=== PATIENT | male | born 1960 | race Caucasian/White ===

== ENCOUNTER 2023-12-05 21:35 | Emergency (ER) | payer OTHER, SELFPAY ==
[2023-12-05] MEDS ORDERED: NA CHLORIDE 0.9% 2,000 ML ONE (23:41)
[2023-12-06 00:04] LABS: Absolute Basophils 0.1 K/uL (0-0.5); Absolute Eosinophils 0.1 K/uL (0-0.5); Absolute Lymphocytes (CBC) 1.7 K/uL (0.7-4.9); Absolute Monocytes 0.7 K/uL (0.1-1.3); Absolute Neutrophil 8.1 K/uL (1.8-8.0); Basophils % 0.6 % (0-1.3); Eosinophils % 0.6 % (0-4.4); Hematocrit 40.1 % (39.6-49.0); Hemoglobin 13.5 g/dL (13.6-17.9); Lymphocytes % 16.1 % (15.3-44.8); MCH 32.3 pg (27.0-35.0); MCHC 33.7 g/dL (32.0-36.0); MPV 7.2 fL (7.6-11.3); Monocytes % 6.2 % (3.3-12.3); Neutrophils % 76.5 % (41.7-73.7); Platelets 237 thou/uL (152-406); RBC Red Blood Cell Count 4.18 M/uL (4.33-5.43); Red Cell Distribution Width 13.4 % (12.1-15.2)
[2023-12-06 00:16] LABS: Albumin 3.8 g/dL (3.4-5.0); Albumin/Globulin Ratio 1.2 (1.1-1.8); Bilirubin Direct 0.2 mg/dL (0-0.2); Bilirubin Indirect, Calculated 0.5 mg/dL (0.2-0.8); Bilirubin Total 0.7 mg/dL (0.2-1.0); Globulin 3.3 g/dL (2.3-3.5); Magnesium 2.4 mg/dL (1.6-2.4); Protein, Total 7.1 g/dL (6.4-8.2); Troponin High Sensitivity 5.6 pg/mL (<58.9)
[2023-12-06] MEDS ORDERED: TDAP (DIPHTH,PERTUSS(ACELL),TET VAC) 0.5 ML VIAL IMVAC ONE (01:19)
[2023-12-06] MEDS ORDERED: LIDOCAINE 1% 20 ML MDV ONE (01:19)
--- NOTE | 2023-12-06 01:49 | ER ---
Nurse's Notes [facility] Name: Javi Mcnulty Age: 63 yrs Sex: Male : 1960 Arrival Date: 12/05/2023 Time: 21:35 Bed 4 Private MD: Diagnosis: Heat syncope;Acute syncopal episode, moderate dehydration, right wrist laceration, Fall at home Presentation: 12/04 22:19 Chief complaint: Patient states: Pt was working outside all day and was not drinking jb4 water. Took his b/p meds and passed out. Initial b/p was 71/45. Pt was given a 400ml bolus and placed in Trendelenburg. Coronavirus screen: At this time, the client does not indicate any symptoms associated with coronavirus-19. Ebola Screen: No symptoms or risks identified at this time. Initial Sepsis Screen: Does the patient meet any 2 criteria? No. Patient's initial sepsis screen is negative. Does the patient have a suspected source of infection? No. Patient's initial sepsis screen is negative. Risk Assessment: Do you want to hurt yourself or someone else? Patient reports no desire to harm self or others. Onset of symptoms was December 05, 2023. Transition of care: patient was not received from another setting of care. 22:19 Method Of Arrival: EMS: [facility] jb4 22:19 Acuity: MAKEDA 3 jb4 Historical: - Allergies: 22:25 Vancomycin; jb4 - Home Meds: 22:25 Aspirin Oral [Active]; carvedilol oral [Active]; gabapentin oral [Active]; Lisinopril jb4 Oral [Active]; - PMHx: 22:25 HTN; Enlarged prostate; Neuropathy; jb4 - Immunization history:: Adult Immunizations up to date. - Infectious Disease History:: Denies. - Social history:: Smoking status: Patient denies any tobacco usage or history of. - Family history:: not pertinent. Screenin/15 01:58 [facility] ED Fall Risk Assessment (Adult) History of falling in the last 3 months, jb4 including since admission No falls in past 3 months (0 pts) Confusion or Disorientation No (0 pts) Intoxicated or Sedated No (0 pts) Impaired Gait No (0 pts) Mobility Assist Device Used No (0 pt) Altered Elimination No (0 pt) Score/Fall Risk Level 0 - 2 = Low Risk Oriented to surroundings, Maintained a safe environment. Abuse screen: Denies threats or abuse. Nutritional screening: No deficits noted. Tuberculosis screening: No symptoms or risk factors identified. Assessment: 12/04 22:30 General: Appears in no apparent distress. comfortable, Behavior is calm, cooperative, jb4 appropriate for age. Pain: Complains of pain in right wrist Pain does not radiate. Pain currently is 4 out of 10 on a pain scale. Neuro: Level of Consciousness is awake, alert, obeys commands, Oriented to person, place, time, situation. Cardiovascular: Patient's skin is warm and dry. Respiratory: Airway is patent Respiratory effort is even, unlabored, Respiratory pattern is regular, symmetrical. GI: No signs and/or symptoms were reported involving the gastrointestinal system. : No signs and/or symptoms were reported regarding the genitourinary system. EENT: No signs and/or symptoms were reported regarding the EENT system. Derm: Skin is pink, warm \T\ dry. Musculoskeletal: Circulation, motion, and sensation intact. Injury Description: Laceration sustained to right wrist. 12/05 00:00 Reassessment: Patient appears in no apparent distress at this time. Patient and/or jb4 family updated on plan of care and expected duration. Pain level reassessed. Patient is alert, oriented x 3, equal unlabored respirations, skin warm/dry/pink. 01:58 Reassessment: Patient appears in no apparent distress at this time. Patient and/or jb4 family updated on plan of care and expected duration. Pain level reassessed. Patient is alert, oriented x 3, equal unlabored respirations, skin warm/dry/pink. Vital Signs: 12/04 22:19 BP 144 / 86; Pulse 63; Resp 16; Temp 98(O); Pulse Ox 100% ; Weight 92.99 kg (R); Height jb4 5 ft. 9 in. (R); Pain 0/10; 12/05 01:42 BP 172 / 84 RA Supine; Pulse 69; Pulse Ox 100% on R/A; oe 01:44 BP 185 / 97 RA Sitting; Pulse 74; Pulse Ox 100% on R/A; oe 01:46 BP 176 / 90 RA Standing; Pulse 73; Pulse Ox 100% on R/A; oe 12/04 22:19 Body Mass Index 30.27 (92.99 kg, 175.26 cm) jb4 12/04 22:19 Pain Scale: Adult jb4 Mariely Coma Score: 01:49 Eye Response: spontaneous(4). Motor Response: obeys commands(6). Verbal Response: sp4 oriented(5). Total: 15. NIH Stroke Scale Scores: 01:49 NIHSS Score: 0 sp4 ED Course: 12/04 21:35 Patient arrived in ED. jj6 21:39 Santy Montesinos MD is Attending Physician. sp4 22:25 Triage completed. jb4 22:25 Arm band placed on right wrist. jb4 23:47 Troponin HS Sent. jb4 23:47 NT PRO-BNP Sent. jb4 23:47 Magnesium Sent. jb4 23:47 LFT's Sent. jb4 23:47 Basic Metabolic Panel Sent. jb4 23:47 CBC with Diff Sent. jb4 23:47 CK Sent. jb4 12/05 01:47 Monster Lizama MD is Referral Physician. sp4 01:58 Patient has correct armband on for positive identification. Bed in low position. Call jb4 light in reach. Side rails up X 1. Provided Education on: discharge instructions.. 01:58 No provider procedures requiring assistance completed. IV discontinued, intact, jb4 bleeding controlled, No redness/swelling at site. Pressure dressing applied. Administered Medications: 12/04 23:47 Drug: NS 0.9% IV 1000 ml IV at 1 bolus Per protocol; 1000 mL bolus Route: IV; Rate: 1 jb4 bolus; Site: left antecubital; 12/05 02:00 Follow up: Response: No adverse reaction; IV Status: Completed infusion; IV Intake: jb4 1000ml 01:51 Not Given (Physician Discretion): ns 0.9% 1000 ml IV at 250 ml/hr continuous jb4 01:55 Drug: Trimethoprim-Sulfamethoxazole PO (160 mg-800 mg (DS) 1 tablet PO once Route: PO; jb4 02:00 Follow up: Response: Medication Administered at Departure jb4 01:56 Drug: Lidocaine Infiltration (1 %) 20 ml 20 ml Infiltration once; to bedside {Note: al5 given by .} Volume: 20 ml; Route: Infiltration; 01:57 Follow up: Response: No adverse reaction al5 01:56 Drug: Boostrix Tdap IM 0.5 ml IM once; as a single dose Route: IM; Site: left deltoid; al5 01:56 Follow up: Response: (VIS) Vaccine information sheet provided today. Questions and/or al5 concerns addressed. VIS edition date: Nov 26, 2020.; No adverse reaction Intake: 02:00 IV: 1000ml; Total: 1000ml. jb4 Outcome: 01:48 Discharge ordered by MD. sp4 01:58 Discharged to home ambulatory, jb4 01:58 Condition: stable 01:58 Discharge instructions given to patient, Instructed on discharge instructions, follow up and referral plans. medication usage, Demonstrated understanding of instructions, follow-up care, medications, Prescriptions given X 1, 02:00 Patient left the ED. jb4 NIH Stroke Scale - NIH Stroke Score Date: 12/06/2023 Time: 01:49 Total Score = 0 10. Dysarthria (speech clarity - read or repeat words) - 0(Normal) 11. Extinction and Inattention (visual/tactile/auditory/spatial/personal) - 0(No abnormality) 1a. Level of Consciousness (LOC) - 0(Alert) 1b. Level of Consciousness (LOC) (Month \T\ Age) - 0(Both) 1c. LOC Commands (Open \T\ Closes Eyes/Woods Rider) - 0(Both) 2. Best Gaze (Lateral Gaze Paresis) - 0(Normal) 3. Visual Field Loss - 0(No visual loss) 4. Facial Palsy - 0(Normal) 5a. Left Arm: Motor (10-second hold) - 0(No drift) 5b. Right Arm: Motor (10-second hold) - 0(No drift) 6a. Left Leg: Motor (5-second hold - always test supine) - 0(No drift) 6b. Right Leg: Motor (5-second hold - always test supine) - 0(No drift) 7. Limb Ataxia (finger/nose \T\ heel/winters - test with eyes open) - 0(Absent) 8. Sensory Loss (pinprick arms/legs/face) - 0(Normal) 9. Best Language: Aphasia (description/naming/reading) - 0(No aphasia) Initials: sp4 Signatures: Shane Patel, RN RN jb4 Ankit Rene Jennifer jj6 Santy Montesinos MD MD sp4 Celestina Bowman RN RN al5 Corrections: (The following items were deleted from the chart) 02:00 01:58 Discharge instructions given to patient, Instructed on discharge jb4 instructions, follow up and referral plans. Demonstrated understanding of instructions, follow-up care, jb4
--- NOTE | 2023-12-06 01:49 | EDPHYS ---
Physician Documentation [facility] Name: Javi Mcnulty Age: 63 yrs Sex: Male : 1960 Arrival Date: 12/05/2023 Time: 21:35 Bed 4 Private MD: ED Physician Santy Montesinos HPI: 12/04 21:39 This 63 yrs old Male presents to ER via Unassigned with complaints of Syncope.sp4 12/05 22:10 Patient presents with acute onset of syncopal episode. After he has spent some time sp4 inside the [employer] horse shed and a barn. Patient passed out fell and lacerated his right wrist.. Historical: - Allergies: 12/04 22:25 Vancomycin; jb4 - Home Meds: 22:25 Aspirin Oral [Active]; carvedilol oral [Active]; gabapentin oral [Active]; Lisinopril jb4 Oral [Active]; - PMHx: 22:25 HTN; Enlarged prostate; Neuropathy; jb4 - Immunization history:: Adult Immunizations up to date. - Infectious Disease History:: Denies. - Social history:: Smoking status: Patient denies any tobacco usage or history of. - Family history:: not pertinent. ROS: 12/05 22:10 Constitutional: Negative for fever, chills, and weight loss, positive syncopal episode, sp4 positive for heat exhaustion, positive for right wrist laceration. All other systems are negative, Exam: 01:49 Constitutional: This is a well developed, well nourished patient who is awake, alert, sp4 and in no acute distress. Head/Face: Normocephalic, atraumatic. Eyes: Pupils equal round and reactive to light, extra-ocular motions intact. Lids and lashes normal. Conjunctiva and sclera are not injected. Cornea within normal limits. Periorbital areas with no swelling, redness, or edema. ENT: Nares patent. No nasal discharge, no septal abnormalities noted. Tympanic membranes are normal and external auditory canals are clear. Oropharynx with no redness, swelling, or masses, exudates, or evidence of obstruction, uvula midline. Mucous membranes moist. Neck: Trachea midline, no thyromegaly or masses palpated, and no cervical lymphadenopathy. Supple, full range of motion without nuchal rigidity, or vertebral point tenderness. Chest/axilla: Normal chest wall appearance and motion. Nontender with no deformity. No lesions are appreciated. Cardiovascular: Regular rate and rhythm with a normal S1 and S2. No gallops, murmurs, or rubs. Normal PMI, no JVD. No pulse deficits. Respiratory: Lungs have equal breath sounds bilaterally, clear to auscultation and percussion. No rales, rhonchi or wheezes noted. No increased work of breathing, no retractions or nasal flaring. Abdomen/GI: Soft, with normal bowel sounds. No distension or tympany. No guarding or rebound. No evidence of tenderness throughout. Back: No spinal tenderness. No costovertebral tenderness. Skin: Warm, dry with normal turgor. Normal color with no rashes, no lesions, and no evidence of cellulitis. Moderate jagged appearing right wrist laceration on the ulnar side of the wrist. Intact tendon function. MS/ Extremity: Pulses equal, no cyanosis. Neurovascular intact. Full, normal range of motion. Neuro: Awake and alert, GCS 15, oriented to person, place, time, and situation. Cranial nerves II-XII grossly intact. Motor strength 5/5 in all extremities. Sensory grossly intact. Psych: Awake, alert, with orientation to person, place and time. Behavior, mood, and affect are within normal limits 01:49 ECG was reviewed by the Attending Physician. EKG at 2312 sinus rhythm with PVCs, rate 62. Vital Signs: 12/04 22:19 BP 144 / 86; Pulse 63; Resp 16; Temp 98(O); Pulse Ox 100% ; Weight 92.99 kg (R); Height jb4 5 ft. 9 in. (R); Pain 0/10; 12/05 01:42 BP 172 / 84 RA Supine; Pulse 69; Pulse Ox 100% on R/A; oe 01:44 BP 185 / 97 RA Sitting; Pulse 74; Pulse Ox 100% on R/A; oe 01:46 BP 176 / 90 RA Standing; Pulse 73; Pulse Ox 100% on R/A; oe 12/04 22:19 Body Mass Index 30.27 (92.99 kg, 175.26 cm) [facility] 12/04 22:19 Pain Scale: Adult jb4 NIH Stroke Scale Scores: 01:49 NIHSS Score: 0 sp4 Mariely Coma Score: 01:49 Eye Response: spontaneous(4). Motor Response: obeys commands(6). Verbal Response: sp4 oriented(5). Total: 15. Laceration: 01:45 Wound Repair of 3cm ( 1.2in ) subcutaneous laceration to right wrist. Irregularly sp4 shaped.. Minimal bleeding noted.. Moderate contamination.. Distal neuro/vascular/tendon intact. Anesthesia: Wound infiltrated with 10 mls of 1% lidocaine. Wound prep: Moderate cleansing with hibiclenz by tn, Copious irrigation. Skin closed with 8 4-0 Prolene using interrupted sutures and sterile technique. Dressed with 4x4's, Kerlix, non-adherent dressing. Patient tolerated well. MDM: 12/04 21:40 Patient medically screened. 4 12/05 01:45 Differential Diagnosis: cardiac arrhythmia, drug effect, emotional response, idiopathic sp4 syncope. Data reviewed: vital signs, nurses notes, EMS record, old medical records, lab test result(s), EKG. ED course: Patient stable for discharge home.. 22:10 Consideration of Admission/Observation Escalation of care including sp4 admission/observation considered. ED course: Stable for discharge home.. 12/04 21:40 Order name: Basic Metabolic Panel; Complete Time: 00:23 4 12/04 21:40 Order name: CBC with Diff; Complete Time: 00:11 4 12/04 21:40 Order name: LFT's; Complete Time: 00:23 4 12/04 21:40 Order name: Magnesium; Complete Time: 00:23 4 12/04 21:40 Order name: NT PRO-BNP; Complete Time: 00:23 4 12/04 21:40 Order name: Troponin HS; Complete Time: 00:23 4 12/04 21:40 Order name: CK; Complete Time: 00:23 4 12/04 21:40 Order name: Cardiac monitoring; Complete Time: 22:50 [facility] 12/04 21:40 Order name: EKG - Nurse/Tech; Complete Time: 22:45 4 12/04 21:40 Order name: IV Saline Lock; Complete Time: 22:50 [facility] 12/04 21:40 Order name: Labs collected and sent; Complete Time: 23:47 [facility] 12/04 21:40 Order name: O2 Per Protocol; Complete Time: 22:50 sp4 12/04 21:40 Order name: O2 Sat Monitoring; Complete Time: 22:50 sp4 12/05 00:24 Order name: Orthostatic Blood Pressure sp4 12/05 01:19 Order name: Dressing - Wound; Complete Time: :52 sp4 12/05 01:19 Order name: Gloves, Sterile; Complete Time: :52 sp4 12/05 01:19 Order name: Setup Suture Tray; Complete Time: sp4 EC:49 Rate is 62 beats/min. Rhythm is irregular, Sinus Rhythm with PACs. QRS [place] is Normal. sp4 [place] interval is normal. QRS interval is normal. QT interval is normal. No Q waves. T waves are Normal. No ST changes noted. Clinical impression: No evidence of ischemia. Interpreted by me. Reviewed by me. Administered Medications: 12/04 23:47 Drug: NS 0.9% IV 1000 ml IV at 1 bolus Per protocol; 1000 mL bolus Route: IV; Rate: 1 jb4 bolus; Site: left antecubital; 12/05 02:00 Follow up: Response: No adverse reaction; IV Status: Completed infusion; IV Intake: jb4 1000ml 01:51 Not Given (Physician Discretion): ns 0.9% 1000 ml IV at 250 ml/hr continuous jb4 01:55 Drug: Trimethoprim-Sulfamethoxazole PO (160 mg-800 mg (DS) 1 tablet PO once Route: PO; jb4 02:00 Follow up: Response: Medication Administered at Departure jb4 01:56 Drug: Lidocaine Infiltration (1 %) 20 ml 20 ml Infiltration once; to bedside {Note: al5 given by MD.} Volume: 20 ml; Route: Infiltration; 01:57 Follow up: Response: No adverse reaction al5 01:56 Drug: Boostrix Tdap IM 0.5 ml IM once; as a single dose Route: IM; Site: left deltoid; al5 01:56 Follow up: Response: (VIS) Vaccine information sheet provided today. Questions and/or al5 concerns addressed. VIS edition date: Nov 26, 2020.; No adverse reaction Disposition Summary: 12/06/23 01:48 Discharge Ordered Notes: Location: Home sp4 Problem: new sp4 Symptoms: have improved sp4 Condition: Stable sp4 Diagnosis - Heat syncope sp4 - Acute syncopal episode, moderate dehydration, right wrist laceration, Fall at home sp4 Followup: sp4 - With: Monster Lizama MD - When: 7 - 10 days - Reason: Recheck today's complaints Discharge Instructions: - Discharge Summary Sheet sp4 - Laceration Care, Adult, [id number] sp4 Forms: - Patient Portal Instructions sp4 Prescriptions: - Bactrim DS 800-160 mg Oral Tablet - take 1 tablet ORAL route every 12 hours for 10 days; 20 tablet; Refills: 0, sp4 Product Selection Permitted NIH Stroke Scale - NIH Stroke Score Date: 12/06/2023 Time: 01:49 Total Score = 0 10. Dysarthria (speech clarity - read or repeat words) - 0(Normal) 11. Extinction and Inattention (visual/tactile/auditory/spatial/personal) - 0(No abnormality) 1a. Level of Consciousness (LOC) - 0(Alert) 1b. Level of Consciousness (LOC) (Month \T\ Age) - 0(Both) 1c. LOC Commands (Open \T\ Closes Eyes/Inside Sales Consultant) - 0(Both) 2. Best Gaze (Lateral Gaze Paresis) - 0(Normal) 3. Visual Field Loss - 0(No visual loss) 4. Facial Palsy - 0(Normal) 5a. Left Arm: Motor (10-second hold) - 0(No drift) 5b. Right Arm: Motor (10-second hold) - 0(No drift) 6a. Left Leg: Motor (5-second hold - always test supine) - 0(No drift) 6b. Right Leg: Motor (5-second hold - always test supine) - 0(No drift) 7. Limb Ataxia (finger/nose \T\ heel/iwnters - test with eyes open) - 0(Absent) 8. Sensory Loss (pinprick arms/legs/face) - 0(Normal) 9. Best Language: Aphasia (description/naming/reading) - 0(No aphasia) Initials: sp4 Signatures: Dispatcher [employer] Shane Buckner, RN RN jb4 Santy Montesinos MD MD sp4 Celestina Bowman RN RN al5
[2023-12-06] MEDS ORDERED: SMZ./TMP. 800/160 MG TABLET ONE (01:53)
[2023-12-06 02:04] VITALS: TEMP 98; O2SAT 100
[2023-12-06 02:09] VITALS: BP 176/90
== END 2023-12-06 02:00 | disposition home or self-care (01) ==
LOC: ER 21:35
PROC: 0JQG3ZZ Repair Right Lower Arm Subcutaneous Tissue and Fascia, Percutaneous Approach (ICD-10-PCS; principal; 2023-12-05)
DX: T67.1XXA Heat syncope, initial encounter (principal); S61.511A Laceration without foreign body of right wrist, initial encounter; W19.XXXA Unspecified fall, initial encounter; Y92.009 Unspecified place in unspecified non-institutional (private) residence as the place of occurrence of the external cause; E86.0 Dehydration; I10 Essential (primary) hypertension; G62.9 Polyneuropathy, unspecified; N40.0 Benign prostatic hyperplasia without lower urinary tract symptoms; Z79.899 Other long term (current) drug therapy; Z88.1 Allergy status to other antibiotic agents
CPT/HCPCS: 36415; 80048; 80076; 82550; 83735; 83880; 84484; 85025; 96360; 96361; 96372; 99284; J2001; J7030